=== PATIENT | male | born 1955 | race Caucasian/White ===

== ENCOUNTER 2018-06-19 04:06 | Emergency (ER) | payer OTHER ==
[~2018-06-19 04:06] MED LIST: AMOX-559 PO; AMOX500T10 PO; ATOV1TAB17 PO; CHOL200074 PO; CIPR-344 PO; CYAN500T38 PO; CYCL10TA29 PO; DOXY-179 PO; ENOX150D4 SQ; FERR-53 PO; FLU60SYR30 IM ONLY; GLUC-111 PO; GLUC100026 PO; LEVO125T77 PO; LEVO137T22 PO; LEVO137T23 PO; LEVO150T78 PO; LEVO75TA73 PO; MULT-1335 PO; MULT-820 PO; OXYC-373 PO; PSYL0.5234 PO; SIM10 PO; THYR113. PO; THYR130T11 PO; UBID100C9 PO; VITA150T2 PO; WAR5 PO; WARF5TAB23 PO; ZOST19404 SQ; [UNRECOGNIZED DRUG - REMARK]
--- NOTE | 2018-06-19 04:08 | ER Report ---
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 Patient has been driving more than he should lately. He noted that his left leg swelled up. He's been having some calf pain for 24 hours. Patient does wear compression stockings but only knee-high. Patient after his last DVT underwent thrombolytic catheter intervention in his left leg. Followed by vascular specialist down at [facility] in [place], [place]. Patient notes no shortness of breath or chest pain. His INR was last checked 1 month ago. He takes 5 mg per day, except for one day of the week. He takes 7.5. REVIEW OF SYSTEMS: Respiratory: No cough, no dyspnea. Cardiovascular: No chest pain, no palpitations. Gastrointestinal: No vomiting, no abdominal pain. Musculoskeletal: No back pain. Allergies: Coded Allergies: No Known Allergies (Verified Allergy, Unknown, 06/19/18) Vlpgcmc-Jua-Ahy Reductase Inhibitor (Verified Adverse Reaction, Intermediate, 06/19/18) leg cramping Home Meds Active Scripts Levothyroxine Sodium (LEVOTHYROXINE SODIUM) 150 Mcg Tablet, 1 TAB PO QDAY, #90 TAB Prov:LAURA MODI APRN-C 11/20/17 Warfarin Sodium (WARFARIN SODIUM) 5 Mg Tablet, 1-1.5 TAB PO QDAY, #45 TAB 4 Refills Adjust dose as instructed. Prov:LAURA MODI APRN-C 04/10/17 Reported Medications Lisinopril (LISINOPRIL) 40 Mg Tablet, 40 MG PO QDAY, TAB 06/19/18 Vitamin B Complex & Vit C No.4 (SUPER B COMPLEX) 150 Mg Tablet, 1 TAB PO DAILY 02/13/17 Cholecalciferol (Vitamin D3) (VITAMIN D-3) 2,000 Unit Capsule, 2000 UNIT PO DAILY, CAPSULE 02/13/17 Glucosamine Hcl/Msm (SM GLUCOSAMINE & MSM TABLET) 1 Each Tablet, 1500 MG PO DAILY 02/13/17 Ubidecarenone (CO Q-10) Unknown Strength Capsule, 300 MG PO DAILY, CAPSULE 10/17/16 Cyanocobalamin (Vitamin B-12) (VITAMIN B-12) 500 Mcg Tablet, 1 TAB PO DAILY, TAB 10/17/16 Multivitamin (MULTIVITAMINS) 1 Each Tablet, 1 TAB PO DAILY, TAB 10/17/16 Psyllium Husk (PSYLLIUM FIBER) 0.52 Gm Capsule, 3 CAP PO DAILY, CAPSULE 01/04/16 Past Medical/Surgical History Past Medical History HEENT: Reports hx of: recurrent sinusitis Cardiovascular: Reports hx of: DVT hyperlipidemia Respiratory: Reports hx of: pulmonary embolism Endocrine: Reports hx of: hypothyroidism Hematology/oncology: Reports hx of: 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 73 67 Resp 14 B/P (MAP) 158/89 158/89 (112) Pulse Ox 90 88 O2 Delivery Room Air 06/19/18 06/19/18 06/19/18 06/19/18 04:30 04:36 04:51 05:00 Pulse 73 73 B/P (MAP) 145/84 (104) 142/67 (92) Pulse Ox 87 87 06/19/18 06/19/18 06/19/18 06/19/18 05:06 05:21 05:26 05:30 Pulse 72 69 80 B/P (MAP) 144/84 (104) Pulse Ox 89 90 88 06/19/18 05:41 Pulse 68 Pulse Ox 92 Physical Exam General Appearance: The patient is alert, has no immediate need for airway protection and no current signs of toxicity. Vital signs stable, afebrile, pulse ox normal Eyes: Pupils equal and round no injection. Respiratory: Chest is non tender, lungs are clear to auscultation. Cardiac: regular rate and rhythm Gastrointestinal: Abdomen is soft and non tender, no masses, bowel sounds normal. Musculoskeletal: Neck: Neck is supple and non tender. Extremities have full range of motion and are non tender. There is tenderness in the posterior calf in the midline, patient has chronic hemosiderin deposits in his left lower extremity. There is no tiffany edema. There is a trace Homans sign. Skin: No rashes or lesions. DIFFERENTIAL DIAGNOSIS: After history and physical exam differential diagnosis was considered for DVT, calf muscle strain, superficial phlebitis, Medical Decision Making Data Points Result Diagram: 06/19/18 0422 06/19/18 0422 Laboratory Hematology Test 06/19/18 04:22 Red Blood Count 4.58 M/uL (4.00-5.60) Mean Corpuscular Volume 96.4 fL (80.0-96.0) Mean Corpuscular Hemoglobin 32.4 pg (26.0-33.0) Mean Corpuscular Hemoglobin Concent 33.6 g/dL (32.0-36.0) Red Cell Distribution Width 14.3 % (11.5-14.5) Mean Platelet Volume 11.3 fL (7.2-11.1) Neutrophils (%) (Auto) 60.7 % (39.4-72.5) Lymphocytes (%) (Auto) 29.0 % (17.6-49.6) Monocytes (%) (Auto) 8.1 % (4.1-12.4) Eosinophils (%) (Auto) 1.3 % (0.4-6.7) Basophils (%) (Auto) 0.9 % (0.3-1.4) Nucleated RBC Relative Count (auto) 0.1 /100WBC Neutrophils # (Auto) 2.1 K/uL (2.0-7.4) Lymphocytes # (Auto) 1.0 K/uL (1.3-3.6) Monocytes # (Auto) 0.3 K/uL (0.3-1.0) Eosinophils # (Auto) 0.0 K/uL (0.0-0.5) Basophils # (Auto) 0.0 K/uL (0.0-0.1) Nucleated RBC Absolute Count (auto) 0.00 K/uL Prothrombin Time 25.5 seconds (12.0-14.4) Prothromb Time International Ratio 2.28 Sodium Level 134 mmol/L (137-145) Potassium Level 4.3 mmol/L (3.5-5.0) Chloride Level 104 mmol/L (98-107) Carbon Dioxide Level 23 mmol/L (22-30) Blood Urea Nitrogen 21 mg/dl (9-21) Creatinine 1.30 mg/dl (0.66-1.25) Glomerular Filtration Rate Calc 55.8 Random Glucose 98 mg/dl (75-110) Calcium Level 9.0 mg/dl (8.4-10.2) Total Bilirubin 0.2 mg/dl (0.2-1.3) Aspartate Amino Transf (AST/SGOT) 25 U/L (0-35) Alanine Aminotransferase (ALT/SGPT) 20 U/L (0-56) Alkaline Phosphatase 98 U/L (0-126) Total Protein 6.7 g/dl (6.3-8.2) Albumin 4.2 g/dl (3.5-5.0) Chemistry Test 06/19/18 04:22 White Blood Count 3.5 k/uL (4.5-11.0) Red Blood Count 4.58 M/uL (4.00-5.60) Hemoglobin 14.8 g/dL (14.0-18.0) Hematocrit 44.1 % (42.0-52.0) Mean Corpuscular Volume 96.4 fL (80.0-96.0) Mean Corpuscular Hemoglobin 32.4 pg (26.0-33.0) Mean Corpuscular Hemoglobin Concent 33.6 g/dL (32.0-36.0) Red Cell Distribution Width 14.3 % (11.5-14.5) Platelet Count 118 K/uL (150-450) Mean Platelet Volume 11.3 fL (7.2-11.1) Neutrophils (%) (Auto) 60.7 % (39.4-72.5) Lymphocytes (%) (Auto) 29.0 % (17.6-49.6) Monocytes (%) (Auto) 8.1 % (4.1-12.4) Eosinophils (%) (Auto) 1.3 % (0.4-6.7) Basophils (%) (Auto) 0.9 % (0.3-1.4) Nucleated RBC Relative Count (auto) 0.1 /100WBC Neutrophils # (Auto) 2.1 K/uL (2.0-7.4) Lymphocytes # (Auto) 1.0 K/uL (1.3-3.6) Monocytes # (Auto) 0.3 K/uL (0.3-1.0) Eosinophils # (Auto) 0.0 K/uL (0.0-0.5) Basophils # (Auto) 0.0 K/uL (0.0-0.1) Nucleated RBC Absolute Count (auto) 0.00 K/uL Prothrombin Time 25.5 seconds (12.0-14.4) Prothromb Time International Ratio 2.28 Glomerular Filtration Rate Calc 55.8 Calcium Level 9.0 mg/dl (8.4-10.2) Total Bilirubin 0.2 mg/dl (0.2-1.3) Aspartate Amino Transf (AST/SGOT) 25 U/L (0-35) Alanine Aminotransferase (ALT/SGPT) 20 U/L (0-56) Alkaline Phosphatase 98 U/L (0-126) Total Protein 6.7 g/dl (6.3-8.2) Albumin 4.2 g/dl (3.5-5.0) Coagulation Test 06/19/18 04:22 Prothrombin Time 25.5 seconds Prothromb Time International Ratio 2.28 EKG/Imaging Imaging Results: Ultrasound of the left lower extremity ultrasound was obtained. The results of the study are EXAMINATION: LEFT LOWER EXTREMITY DOPPLER VENOUS ULTRASOUND DATE: 06/19/2018 4:13 AM INDICATION: New left calf pain, history of recurrent DVTs. TECHNIQUE: Grayscale, color and pulsed Doppler ultrasound was performed of the left lower extremity veins to evaluate for deep venous thrombosis. COMPARISON: None. FINDINGS: The left common femoral, superficial femoral, and popliteal veins are compressible with normal flow on color Doppler and preserved venous waveform variation. There is also normal color Doppler flow in the profunda femoris and greater saphenous veins. The left posterior tibial and peroneal veins have patent Doppler flow. The contralateral right common femoral vein demonstrates normal flow on color Doppler and respiratory variations on pulsed Doppler. IMPRESSION: No evidence of deep venous thrombosis in the left lower extremity. The study was read by the radiologist. I viewed the images myself on the PACS system. ED Course/Re-evaluation ED Course Patient was admitted to an examination room. H&P was done. The differential diagnosis was considered. On clinical examination. Patient has left calf pain. He's been driving his car more than he should. He is concerned that he developed a DVT. Patient has history of recurrent DVTs and PEs. He is on chronic warfarin. 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 An ultrasound is performed of his left lower extremity, which shows no acute DVT. On clinical examination. He has tenderness in the calf muscle. I think he sustained a muscle strain of his calf muscle. He is advised to conservative treatment plan of rest, compression and a heating pad to the affected area. Patient does not need anything for pain relief. He says. He is unable to take NSAIDs due to his chronic and a coagulation. His INR was checked at 2.28. Patient's advised to follow-up with his vascular specialist if he has any further problems or primary care. Decision to Disposition Date: Jun 19, 2018 Decision to Disposition Time: 05:13 Depart Departure Latest Vital Signs Vital Signs Date Time Temp Pulse Resp B/P (MAP) Pulse Ox O2 Delivery O2 Flow Rate FiO2 06/19/18 05:41 68 92 06/19/18 05:30 144/84 (104) 06/19/18 04:09 98.1 14 Room Air Impression: Primary Impression: Pain of left calf Additional Impressions: History of DVT (deep vein thrombosis) Chronic anticoagulation Condition: Improved Disposition: HOME OR SELF-CARE Referrals: LAURA MODI APRN ENVIRONMENTAL FIELD OFFICE MANAGER-C (PCP) Patient Instructions: Muscle Strain (ED) Additional Instructions: Continue your Coumadin as currently prescribed Apply a warm heating pad to your calf muscle Rest as much as possible Follow-up with your primary care as needed Problem Qualifiers ROSALIO JIMENEZ DO Jun 19, 2018 04:08
[2018-06-19] MEDS ORDERED: LISI-374 PO (04:25)
[2018-06-19 04:42] LABS: PLATELET COUNT, AUTOMATED 118 K/uL (150-450)
[2018-06-19 04:46] LABS: INR 2.28
[2018-06-19 05:30] VITALS: BP 144/84
--- NOTE | 2018-06-19 05:51 | RADIOLOGY IMAGING REPORT ---
FACILITY: [facility] PATIENT NAME: Chadwick Ramirez : 1955 MR: [id number] V: [id number] EXAM DATE: [id number] ORDERING PHYSICIAN: ROSALIO JIMENEZ TECHNOLOGIST: Location: [facility] - [place] Patient: Chadwick Ramirez : 1955 Visit/Account:[id number] Date of Sevice: 06/19/2018 EXAMINATION: LEFT LOWER EXTREMITY DOPPLER VENOUS ULTRASOUND DATE: 06/19/2018 4:13 AM INDICATION: New left calf pain, history of recurrent DVTs. TECHNIQUE: Grayscale, color and pulsed Doppler ultrasound was performed of the left lower extremity v [facility] to evaluate for deep venous thrombosis. COMPARISON: None. FINDINGS: The left common femoral, superficial femoral, and popliteal veins are compressible with normal flow o n color Doppler and preserved venous waveform variation. There is also normal color Doppler flow in t he profunda femoris and greater saphenous veins. The left posterior tibial and peroneal veins have patent Doppler flow. The contralateral right common femoral vein demonstrates normal flow on color Doppler and respiratory variations on pulsed Doppler. IMPRESSION: No evidence of deep venous thrombosis in the left lower extremity. Report Dictated By: Enoch Shin MD at 06/19/2018 5:44 AM Report E-Signed By: Enoch Shin MD at 06/19/2018 5:46 AM WSN:[id number]
== END 2018-06-19 06:00 | disposition home or self-care (01) ==
LOC: ER 04:55
DX: M79.662 Pain in left lower leg (principal); Z86.718 Personal history of other venous thrombosis and embolism; Z79.01 Long term (current) use of anticoagulants
CPT/HCPCS: 36415; 82040; 82247; 82310; 82374; 82435; 82565; 82947; 84075; 84132; 84155; 84295; 84450; 84460; 84520; 85025; 85610; 99284

== ENCOUNTER 2018-08-23 00:12 | Day surgery (SDC) | payer OTHER ==
[~2018-08-23] VITALS: Ht 198.1 cm; Wt 100.7 kg
[~2018-08-23 00:12] MED LIST changes: -CYAN500T38 PO; +CYAN500T39 PO; +LISI-374 PO
[2018-08-23] MEDS ORDERED: LIDOCAINE MPF 1% 5 ML VIAL ONE (06:59)
[2018-08-23 10:15] VITALS: BP 142/91
[2018-08-23] MEDS ORDERED: LIDOCAINE/SOD BICARB 8.4% SYR ID ONE (10:15)
[2018-08-23] MEDS ORDERED: NORMOSOL R SOLN(*) 1000 ML BAG 1,000 ML IV PRN (10:15)
[2018-08-23 10:41] LABS: INR 1.95
[2018-08-23 12:05] VITALS: BP 99/60
[2018-08-23 12:33] VITALS: BP 97/64
[2018-08-23 12:45] VITALS: BP 110/76
[2018-08-23 12:56] VITALS: BP 124/78
[2018-08-23 12:57] VITALS: BP 126/72
== END 2018-08-23 13:15 | disposition home or self-care (01) ==
LOC: OR 00:12
PROVIDERS: ATTEND Family Medicine
DX: Z12.11 Encounter for screening for malignant neoplasm of colon (principal); D12.5 Benign neoplasm of sigmoid colon; I10 Essential (primary) hypertension; Z86.718 Personal history of other venous thrombosis and embolism; Z86.711 Personal history of pulmonary embolism; E03.9 Hypothyroidism, unspecified; Z87.891 Personal history of nicotine dependence; E78.5 Hyperlipidemia, unspecified
CPT/HCPCS: 00811; 45384; 85610; 88305; J2001